=== PATIENT | male | born 1940 | race Hispanic/Latino ===

== ENCOUNTER 2017-11-12 09:53 | Observation (INO) | payer OTHER ==
[~2017-11-12] VITALS: Ht 165.1 cm; Wt 95.4 kg
[2017-11-12] MEDS ORDERED: METOPROLOL TARTRATE 1 MG/ML 5ML VIAL IV ONE ×2 (10:02→10:13)
[2017-11-12] MEDS ORDERED: POTASSIUM CHLORIDE 20 MEQ ERTAB PO ONE (10:03)
[2017-11-12 10:22] LABS: BASOPHILS % (AUTO) 0.6 % (0.0-5.0); EOSINOPHILS % (AUTO) 0.6 % (0.0-8.0); HEMATOCRIT 47.5 % (42-54); LYMPHOCYTES % (AUTO) 13.2 % (21.0-51.0); MEAN CORPUSCULAR HEMOGLOBIN 31.4 pg (27.0-33.0); MEAN CORPUSCULAR HGB CONC 33.3 g/dL (32.0-36.0); MEAN CORPUSCULAR VOLUME 94.4 fL (79-99); MONOCYTES % (AUTO) 7.4 % (3.0-13.0); NEUTROPHILS % (AUTO) 78.2 % (40.0-77.0); PLATELET COUNT (AUTO) 155 K/uL (130-400); RED BLOOD CELL COUNT(AUTO) 5.03 MIL/uL (4.50-6.20); RED CELL DISTRIBUTION WIDTH 14.7 % (11.0-15.5); WHITE BLOOD COUNT (AUTO) 12.1 K/uL (4.8-10.8)
[2017-11-12 10:29] LABS: CREATININE 1.1 mg/dL (0.5-1.5); PARTIAL THROMBOPLASTIN TIME 39.2 SEC (26.3-35.5)
[2017-11-12 10:34] LABS: ALBUMIN 3.1 g/dL (3.5-5.0); BILIRUBIN,TOTAL 1.3 mg/dL (0.2-1.0); DIGOXIN 0.48 ng/mL (0.50-2.00)
[2017-11-12 10:49] LABS: INR > 7.00 (0.85-1.15); PROTHROMBIN TIME > 63.0 SEC (9.6-11.6)
[2017-11-12] MEDS ORDERED: PHYTONADIONE 10 MG/1 ML AMP ONE (11:06)
[2017-11-12 11:37] LABS: CREATINE KINASE MB 0.9 ng/mL (0.5-3.6)
[2017-11-12] MEDS ORDERED: ONDANSETRON HCL 4 MG/2 ML VIAL IV PRN (12:15)
[2017-11-12] MEDS ORDERED: ACETAMINOPHEN-CODEINE 300/30MG TAB PO PRN (12:15)
[2017-11-12] MEDS ORDERED: DIPHENHYDRAMINE HCL 25 MG CAPSULE PO PRN (12:15)
[2017-11-12] MEDS ORDERED: LACTULOSE 20 GM/30 ML UDCUP PO PRN (12:15)
[2017-11-12] MEDS ORDERED: GUAIFENESIN-DM 200/20 MG 10 ML PO PRN (12:15)
[2017-11-12] MEDS ORDERED: NITROGLYCERIN 0.4 MG SL TAB SL PRN (12:15)
[2017-11-12] MEDS ORDERED: ACETAMINOPHEN 325 MG TAB PO PRN ×2 (12:15)
[2017-11-12] MEDS ORDERED: MAG HYDROX/AL HYDROX/SIMETH ES 30 ML SUSP UDCUP PO PRN (12:15)
[2017-11-12] MEDS ORDERED: HYDRALAZINE HCL 20 MG/ML VIAL IV PRN (12:15)
[2017-11-12] MEDS: DIGOXIN 250 MCG/ML 2ML AMP IV SCH (12:15)
[2017-11-12] MEDS ORDERED: MORPHINE SULFATE 2 MG/ML 1ML SYG IV PRN (12:15)
[2017-11-12] MEDS ORDERED: ZOLPIDEM TARTRATE 5 MG TAB PO PRN (12:15)
[2017-11-12] MEDS ORDERED: DIGOXIN 250 MCG/ML 2ML AMP ONE (13:51)
[2017-11-12 18:28] LABS: CREATINE KINASE MB 0.6 ng/mL (0.5-3.6); CREATINE KINASE, TOTAL 25 U/L (21-232); MYOGLOBIN 50 ng/mL (10-92); TROPONIN I < 0.04 ng/mL (0.00-0.06)
[2017-11-12 18:29] LABS: PROTHROMBIN TIME > 63.0 SEC (9.6-11.6)
[2017-11-12 18:30] LABS: INR > 7.00 (0.85-1.15)
[2017-11-12] MEDS ORDERED: METOPROLOL TARTRATE 25 MG TAB ONE (20:08)
[2017-11-12] MEDS ORDERED: FAMOTIDINE 20MG TAB 20 MG TAB ONE (20:09)
[2017-11-12] MEDS ORDERED: DILTIAZEM HCL 125 MG/25 ML VIAL IV ONE (20:44)
[2017-11-12] MEDS ORDERED: DILTIAZEM HCL 5 MG/ML 10 ML VIAL IV ONE (20:44)
[2017-11-12] MEDS ORDERED: METOPROLOL TARTRATE 25 MG TAB PO SCH (21:00)
[2017-11-12] MEDS: FAMOTIDINE 20MG TAB 20 MG TAB PO SCH (21:00)
[2017-11-12 22:35] VITALS: BP 121/72
[2017-11-13] MEDS ORDERED: TAMS0.4C32 PO (00:46)
[2017-11-13] MEDS ORDERED: METO100T14 PO (00:46)
[2017-11-13] MEDS ORDERED: DIGO0.12 PO (00:46)
[2017-11-13] MEDS ORDERED: [UNRECOGNIZED DRUG - OTHER] (00:46)
[2017-11-13] MEDS ORDERED: WARF2.5T85 PO (00:46)
[2017-11-13] MEDS ORDERED: WARF-57 PO (00:46)
[2017-11-13] MEDS ORDERED: ASPI-1197 PO (00:46)
[2017-11-13] MEDS ORDERED: SIMV10TA6 PO (00:46)
[2017-11-13] MEDS ORDERED: WARFARIN PO (00:46)
[2017-11-13] MEDS ORDERED: MULT-1289 PO (00:46)
[2017-11-13] MEDS ORDERED: BENZ-51 PO (00:46)
[2017-11-13 02:30] LABS: CREATININE 1.2 mg/dL (0.5-1.5); POTASSIUM 4.2 mmol/L (3.5-5.1)
[2017-11-13 02:31] LABS: PARTIAL THROMBOPLASTIN TIME 39.6 SEC (26.3-35.5)
[2017-11-13 02:38] LABS: INR 5.15 (0.85-1.15); PROTHROMBIN TIME 52.4 SEC (9.6-11.6)
[2017-11-13 02:44] LABS: CREATINE KINASE MB 0.6 ng/mL (0.5-3.6); CREATINE KINASE, TOTAL 27 U/L (21-232); MYOGLOBIN 43 ng/mL (10-92); TROPONIN I < 0.04 ng/mL (0.00-0.06)
[2017-11-13 03:15] VITALS: BP 117/69
[2017-11-13 07:47] VITALS: BP 126/80
[2017-11-13] MEDS ORDERED: ASPIRIN 81MG TAB.CHEW PO SCH (09:00)
[2017-11-13] MEDS ORDERED: BENZONATATE 100 MG CAPSULE PO PRN (09:00)
[2017-11-13] MEDS: MULTIVITAMIN WITH MINERALS TABLET PO SCH (09:46)
[2017-11-13] MEDS: TAMSULOSIN HCL 0.4 MG CAP.ER.24H PO SCH (09:46)
[2017-11-13] MEDS: DIGOXIN 125 MCG TABLET PO SCH (09:47)
[2017-11-13] MEDS: METOPROLOL TARTRATE 50 MG TAB PO SCH ×2 (09:47→20:12)
[2017-11-13] MEDS: FAMOTIDINE 20MG TAB 20 MG TAB PO SCH ×2 (09:48→20:12)
[2017-11-13] MEDS: DIGOXIN 250 MCG/ML 2ML AMP IV SCH (09:48)
[2017-11-13] MEDS ORDERED: PHYTONADIONE 10 MG/1 ML AMP SQ SCH (10:15)
[2017-11-13 11:19] VITALS: BP 114/56
[2017-11-13 16:25] VITALS: BP 130/60
[2017-11-13 19:42] VITALS: BP 120/78
[2017-11-13] MEDS ORDERED: ATORVASTATIN CALCIUM 10 MG TABLET PO SCH (21:00)
[2017-11-13 23:45] VITALS: BP 106/65
[2017-11-14 03:36] VITALS: BP 126/72
[2017-11-14 04:39] LABS: INR 1.69 (0.85-1.15); PARTIAL THROMBOPLASTIN TIME 30.5 SEC (26.3-35.5); POTASSIUM 4.2 mmol/L (3.5-5.1); PROTHROMBIN TIME 17.6 SEC (9.6-11.6)
[2017-11-14] MEDS ORDERED: WARFARIN SODIUM 5 MG TAB PO SCH (07:00)
[2017-11-14 07:29] VITALS: BP 121/72
[2017-11-14] MEDS: MULTIVITAMIN WITH MINERALS TABLET PO SCH (09:02)
[2017-11-14] MEDS: TAMSULOSIN HCL 0.4 MG CAP.ER.24H PO SCH (09:02)
[2017-11-14] MEDS: FAMOTIDINE 20MG TAB 20 MG TAB PO SCH (09:02)
[2017-11-14] MEDS: DIGOXIN 125 MCG TABLET PO SCH (09:02)
[2017-11-14] MEDS: METOPROLOL TARTRATE 50 MG TAB PO SCH (09:02)
[2017-11-14 11:25] VITALS: BP 124/77
[2017-11-15] MEDS ORDERED: WARFARIN SODIUM 2.5 MG TAB PO SCH (20:00)
[2018-03-08] MEDS ORDERED: ASPI-1181 PO (11:56)
[2018-03-08] MEDS ORDERED: LOSA25TA21 PO (11:59)
[2018-03-08] MEDS ORDERED: WARF-57 PO (11:59)
[2018-03-08] MEDS ORDERED: METO-391 PO (11:59)
[2018-03-08] MEDS ORDERED: FURO20TA4 PO (11:59)
[2018-03-08] MEDS ORDERED: DIGO125T87 PO (11:59)
[2018-03-08] MEDS ORDERED: PANT20TA12 PO (11:59)
[2018-04-19] MEDS ORDERED: WARF5TAB76 PO (10:47)
== END 2017-11-14 12:20 | disposition home or self-care (01) ==
LOC: EDH 09:53 → EDHIP 11:15 → 2AH 22:08
PROVIDERS: ADMIT Internal Medicine; ATTEND Internal Medicine
DX: I48.2 Chronic atrial fibrillation (principal); I25.10 Atherosclerotic heart disease of native coronary artery without angina pectoris; R79.1 Abnormal coagulation profile; I10 Essential (primary) hypertension; E78.5 Hyperlipidemia, unspecified; G47.33 Obstructive sleep apnea (adult) (pediatric); N40.0 Benign prostatic hyperplasia without lower urinary tract symptoms; Z79.01 Long term (current) use of anticoagulants; Z87.891 Personal history of nicotine dependence; Z95.1 Presence of aortocoronary bypass graft
CPT/HCPCS: 36415 ×3; 71010; 80048 ×2; 80053; 80162; 82550 ×3; 82553 ×3; 83874 ×2; 84484 ×3; 85025; 85610 ×4; 85730 ×3; 93005; 96372; 99291; G0378 ×49; J1160; J3430 ×2; J3490 ×4

== ENCOUNTER → 2017-12-27 | Outpatient (CLI) | payer OTHER ==
[~2017-12-27] MED LIST: ASPI-1181 PO; ASPI-1197 PO; BENZ-51 PO; DIGO0.12 PO; DIGO125T87 PO; FURO20TA4 PO; LOSA25TA21 PO; METO-391 PO; METO100T14 PO; MULT-1289 PO; PANT20TA12 PO; RANO500T3 PO; SIMV10TA6 PO; TAMS0.4C32 PO; WARF-57 PO; WARF2.5T85 PO; WARF5TAB76 PO; WARFARIN PO; [UNRECOGNIZED DRUG - OTHER]
== END ==
LOC: SHCH 09:06
PROVIDERS: ATTEND Internal Medicine Cardiovascular Disease
DX: I50.32 Chronic diastolic (congestive) heart failure (principal)
CPT/HCPCS: 93306

== ENCOUNTER → 2018-01-21 | Outpatient (CLI) | payer OTHER ==
[~2018-01-21] VITALS: Ht 167.6 cm; Wt 90.7 kg
[~2018-01-21] MED LIST changes: +REGADENOSON 0.4 MG/5 ML PF SYG IVP SCH
== END | disposition home or self-care (01) ==
LOC: SHCH 08:44
PROVIDERS: ATTEND Internal Medicine Cardiovascular Disease
DX: I48.2 Chronic atrial fibrillation (principal); R06.09 Other forms of dyspnea
CPT/HCPCS: 78452; 93017; 96374; A9500 ×2; J2785

== ENCOUNTER 2018-03-10 05:33 | Day surgery (SDC) | payer OTHER ==
[2018-03-08 11:36] VITALS: BP 137/76
[2018-03-08 11:54] LABS: BASOPHILS % (AUTO) 0.8 % (0.0-5.0); EOSINOPHILS % (AUTO) 2.3 % (0.0-8.0); HEMATOCRIT 43.9 % (42-54); MEAN CORPUSCULAR HEMOGLOBIN 31.7 pg (27.0-33.0); MEAN CORPUSCULAR HGB CONC 33.9 g/dL (32.0-36.0); MEAN CORPUSCULAR VOLUME 93.5 fL (79-99); MONOCYTES % (AUTO) 9.7 % (3.0-13.0); NEUTROPHILS % (AUTO) 69.2 % (40.0-77.0); NUCLEATED RED BLOOD CELLS 0.1 % (0.0-0.19); PLATELET COUNT (AUTO) 173 K/uL (130-400); RED CELL DISTRIBUTION WIDTH 14.1 % (11.0-15.5); WHITE BLOOD COUNT (AUTO) 7.2 K/uL (4.8-10.8)
[2018-03-08 12:00] LABS: APPEARANCE,URINE Clear (CLEAR); BILIRUBIN,URINE Negative (NEGATIVE); COLOR,URINE Yellow (YELLOW); GLUCOSE, URINE (UA) Negative (NEGATIVE); KETONES,URINE Negative (NEGATIVE); LEUKOCYTE ESTERASE ,URINE Negative (NEGATIVE); NITRATE,URINE Negative (NEGATIVE); OCCULT BLOOD,URINE Negative (NEGATIVE); PH,URINE 5.5 (5.0-8.0); PROTEIN,URINE Negative (NEGATIVE)
[2018-03-08 12:02] LABS: CREATININE 1.2 mg/dL (0.5-1.5); POTASSIUM 4.2 mmol/L (3.5-5.1)
[2018-03-08 12:04] LABS: INR 1.6 (0.85-1.15); PARTIAL THROMBOPLASTIN TIME 33.9 SEC (26.3-35.5); PROTHROMBIN TIME 16.6 SEC (9.6-11.6)
[2018-03-10] VITALS (13 sets, daily range): BP systolic 103–148; BP diastolic 66–92
[~2018-03-10] VITALS: Ht 167.6 cm; Wt 95.8 kg
[~2018-03-10 05:33] MED LIST changes: -ASPI-1197 PO; -BENZ-51 PO; -DIGO0.12 PO; -METO100T14 PO; -RANO500T3 PO; -REGADENOSON 0.4 MG/5 ML PF SYG IVP SCH; -WARF2.5T85 PO; -WARF5TAB76 PO; -WARFARIN PO; -[UNRECOGNIZED DRUG - OTHER]
[2018-03-10] MEDS ORDERED: SODIUM CHLORIDE 0.9% 1000ML 1,000 ML IV ONE (06:27)
[2018-03-10] MEDS ORDERED: NITROGLYCERIN 5 MG/ML 10 ML VIAL IV ONE (07:11)
[2018-03-10] MEDS ORDERED: HEPARIN SODIUM 1000UNIT/ML 10ML VIAL ONE (07:11)
[2018-03-10] MEDS ORDERED: ISOVUE-370 50ML VIAL IV ONE (07:11)
[2018-03-10] MEDS ORDERED: BIVALIRUDIN 250 MG/VIAL IV ONE (07:11)
[2018-03-10] MEDS ORDERED: IOPAMIDOL-370 100 ML VIAL IV ONE (07:12)
[2018-03-10] MEDS ORDERED: LIDOCAINE HCL 2% 20ML ONE (07:12)
[2018-03-10] MEDS ORDERED: RANO500T3 PO (08:46)
[2018-03-10] MEDS ORDERED: SODIUM CHLORIDE 0.9% 1000ML 1,000 ML IV SCH (09:00)
[2018-04-19] MEDS ORDERED: WARF5TAB76 PO (10:47)
== END 2018-03-10 13:15 | disposition home or self-care (01) ==
LOC: DAH 05:33
PROVIDERS: ATTEND Internal Medicine Cardiovascular Disease
DX: I25.118 Atherosclerotic heart disease of native coronary artery with other forms of angina pectoris (principal); I11.0 Hypertensive heart disease with heart failure; I50.42 Chronic combined systolic (congestive) and diastolic (congestive) heart failure; I48.2 Chronic atrial fibrillation; Z95.1 Presence of aortocoronary bypass graft; I08.0 Rheumatic disorders of both mitral and aortic valves; Z79.899 Other long term (current) drug therapy; Z68.31 Body mass index [BMI] 31.0-31.9, adult; E78.00 Pure hypercholesterolemia, unspecified; G47.33 Obstructive sleep apnea (adult) (pediatric); Z79.01 Long term (current) use of anticoagulants
CPT/HCPCS: 36415; 71045; 80048; 81003; 85025; 85610; 85730; 93005; 93459; A4606; C1760; C1769 ×2; C1894; J1644; J3490 ×2; J7030; Q9967 ×2; J0583

== ENCOUNTER 2018-04-20 06:15 | Day surgery (SDC) | payer OTHER ==
[~2018-04-20] VITALS: Ht 167.6 cm; Wt 95.6 kg
[~2018-04-20 06:15] MED LIST changes: +RANO500T3 PO; +SODIUM CHLORIDE 0.9% 1000ML 1,000 ML IV ONE; -WARF-57 PO; +WARF5TAB76 PO
[2018-04-20 06:53] VITALS: BP 123/72
[2018-04-20] MEDS ORDERED: PROPOFOL 10 MG/ML 20ML VIAL IV ONE (07:34)
[2018-04-20 08:19] VITALS: BP 62/27
[2018-04-20] MEDS ORDERED: EPHEDRINE SULFATE 50 MG/ML AMPULE ONE (08:25)
[2018-04-20 08:29] VITALS: BP 101/55
== END 2018-04-20 08:50 | disposition home or self-care (01) ==
LOC: DAH 06:15 → ENDO 06:15
PROVIDERS: ATTEND Internal Medicine Gastroenterology
DX: D12.2 Benign neoplasm of ascending colon (principal); K63.5 Polyp of colon; K57.30 Diverticulosis of large intestine without perforation or abscess without bleeding; I25.10 Atherosclerotic heart disease of native coronary artery without angina pectoris; I48.91 Unspecified atrial fibrillation; Z68.32 Body mass index [BMI] 32.0-32.9, adult; I50.20 Unspecified systolic (congestive) heart failure; Z86.010 Personal history of colon polyps; K21.9 Gastro-esophageal reflux disease without esophagitis; E78.5 Hyperlipidemia, unspecified; N40.0 Benign prostatic hyperplasia without lower urinary tract symptoms; Z95.1 Presence of aortocoronary bypass graft; Z98.890 Other specified postprocedural states; Z98.49 Cataract extraction status, unspecified eye; I11.0 Hypertensive heart disease with heart failure; Z79.899 Other long term (current) drug therapy; Z79.84 Long term (current) use of oral hypoglycemic drugs; Z79.01 Long term (current) use of anticoagulants
CPT/HCPCS: 45380; 88305; 93005; A4606; J2704; J3490; J7030

== ENCOUNTER 2020-02-06 10:17 | Emergency (ER) | payer OTHER ==
[~2020-02-06 10:17] MED LIST changes: -ASPI-1181 PO; +DIGO125T71 PO; -DIGO125T87 PO; -LOSA25TA21 PO; +LOSA25TA41 PO; -SIMV10TA6 PO; +SIMV10TA97 PO; -SODIUM CHLORIDE 0.9% 1000ML 1,000 ML IV ONE
[2020-02-06 10:48] LABS: APPEARANCE,URINE CLOUDY (CLEAR); BILIRUBIN,URINE SMALL (NEGATIVE); COLOR,URINE YELLOW (YELLOW); GLUCOSE, URINE (UA) NEGATIVE (NEGATIVE); KETONES,URINE NEGATIVE (NEGATIVE); LEUKOCYTE ESTERASE ,URINE NEGATIVE (NEGATIVE); NITRATE,URINE NEGATIVE (NEGATIVE); OCCULT BLOOD,URINE LARGE (NEGATIVE); PROTEIN,URINE 30 mg/dL (NEGATIVE)
[2020-02-06 10:55] LABS: BASOPHILS % (AUTO) 0.7 % (0.0-5.0); HEMATOCRIT 45.1 % (42-54); LYMPHOCYTES % (AUTO) 18.4 % (21.0-51.0); MEAN CORPUSCULAR HEMOGLOBIN 29.7 pg (27.0-33.0); MEAN CORPUSCULAR HGB CONC 32.2 g/dL (32.0-36.0); MEAN CORPUSCULAR VOLUME 92.4 fL (79-99); MONOCYTES % (AUTO) 8.2 % (3.0-13.0); NEUTROPHILS % (AUTO) 70.3 % (40.0-77.0); PLATELET COUNT (AUTO) 155 K/uL (130-400); RED BLOOD CELL COUNT(AUTO) 4.88 MIL/uL (4.50-6.20); RED CELL DISTRIBUTION WIDTH 14.2 % (11.0-15.5); WHITE BLOOD COUNT (AUTO) 6.8 K/uL (4.8-10.8)
[2020-02-06 11:14] LABS: BACTERIA,URINE Few /HPF (None Seen); RBC,URINE TNTC /HPF (0-1); SQUAMOUS EPITHELIAL CELL,UR Few /HPF (0-2)
[2020-02-06 11:16] LABS: CREATININE 1.3 mg/dL (0.5-1.5); POTASSIUM 4.3 mmol/L (3.5-5.1)
[2020-02-06 11:20] LABS: ALBUMIN 3.8 g/dL (3.5-5.0); BILIRUBIN,TOTAL 1.1 mg/dL (0.2-1.0); TOTAL PROTEIN, SERUM 7.9 g/dL (6.0-8.3)
[2020-02-06 11:33] LABS: INR 1.74 (0.85-1.15); PARTIAL THROMBOPLASTIN TIME 33.4 SEC (26.3-35.5); PROTHROMBIN TIME 18.4 SEC (9.6-11.6)
== END 2020-02-06 13:03 | disposition home or self-care (01) ==
LOC: EDH 10:17
DX: R31.0 Gross hematuria (principal); I10 Essential (primary) hypertension; E78.5 Hyperlipidemia, unspecified; I48.91 Unspecified atrial fibrillation; I25.2 Old myocardial infarction
CPT/HCPCS: 36415; 74176; 80053; 81001; 85025; 85610; 85730; 87088

== ENCOUNTER → 2020-09-12 | Outpatient (CLI) | payer OTHER ==
[~2020-09-12] MED LIST changes: -PANT20TA12 PO; +PANT20TA18 PO; +WARF5TAB PO; -WARF5TAB76 PO
== END | disposition home or self-care (01) ==
LOC: SHCH 08:13
PROVIDERS: ATTEND Internal Medicine Cardiovascular Disease
DX: I35.0 Nonrheumatic aortic (valve) stenosis (principal); I50.32 Chronic diastolic (congestive) heart failure
CPT/HCPCS: 93306

== ENCOUNTER 2021-10-30 14:56 | Inpatient (IN) | payer OTHER ==
[~2021-10-30] VITALS: Ht 167.6 cm; Wt 89.9 kg
[2021-10-30] MEDS ORDERED: POTASSIUM CHLORIDE 20MEQ/100ML 100 ML IV PRN ×2 (15:30)
[2021-10-30] MEDS ORDERED: FUROSEMIDE 40MG VIAL IV SCH (15:30)
[2021-10-30] MEDS ORDERED: POTASSIUM CHLORIDE 10% ELIXIR 20 MEQ/15 ML UDCUP PO PRN ×2 (15:30)
[2021-10-30] MEDS ORDERED: LIDOCAINE HCL-MPF 1% 2ML VIAL IJ PRN (15:30)
[2021-10-30] MEDS ORDERED: DEXTROSE 50%-WATER 50 ML DISP.SYRIN IV PRN (15:30)
[2021-10-30] MEDS ORDERED: KCL 20 MEQ ERTAB PO PRN (15:30)
[2021-10-30] MEDS ORDERED: LIDOCAINE HCL-MPF 1% 2ML VIAL IV PRN (15:30)
[2021-10-30] MEDS ORDERED: GLUCAGON 1MG KIT 1 MG ML IM PRN (15:30)
[2021-10-30] MEDS ORDERED: WARFARIN SODIUM 2 MG TAB PO SCH (16:00)
[2021-10-30] MEDS: DIGOXIN 125 MCG TABLET PO SCH ×2 (16:09→16:20)
[2021-10-30] MEDS: FUROSEMIDE 40MG VIAL IVP SCH (16:10)
[2021-10-30 16:12] LABS: BASOPHILS % (AUTO) 0.7 % (0.0-5.0); EOSINOPHILS % (AUTO) 1.7 % (0.0-8.0); HEMATOCRIT 42.5 % (42-54); LYMPHOCYTES % (AUTO) 14.1 % (21.0-51.0); MEAN CORPUSCULAR HEMOGLOBIN 29.3 pg (27.0-33.0); MEAN CORPUSCULAR HGB CONC 31.5 g/dL (32.0-36.0); MONOCYTES % (AUTO) 9.1 % (3.0-13.0); NEUTROPHILS % (AUTO) 74.1 % (40.0-77.0); PLATELET COUNT (AUTO) 154 K/uL (130-400); RED BLOOD CELL COUNT(AUTO) 4.57 MIL/uL (4.50-6.20); RED CELL DISTRIBUTION WIDTH 15.6 % (11.0-15.5); WHITE BLOOD COUNT (AUTO) 7.2 K/uL (4.8-10.8)
[2021-10-30 16:27] LABS: CREATININE 1.4 mg/dL (0.5-1.5); MAGNESIUM 2.1 mg/dL (1.80-2.40); POTASSIUM 4.9 mmol/L (3.5-5.1)
[2021-10-30] MEDS: INSULIN R PO SSI SQ SCH ×2 (16:30→20:13)
[2021-10-30] MEDS ORDERED: INSULIN HUMULIN R 100 UNIT/ML 3ML SQ SCH (16:30)
[2021-10-30 16:32] LABS: INR 2.67 (0.85-1.15); PROTHROMBIN TIME 26.6 SEC (9.6-11.6)
[2021-10-30 16:34] LABS: B-TYPE NATRIURETIC PEPTIDE 255 pg/mL (0-100)
[2021-10-30] MEDS ORDERED: ROSU20TA31 PO (17:00)
[2021-10-30] MEDS ORDERED: TAMS-1 PO ×2 (17:00→19:53)
[2021-10-30] MEDS ORDERED: ASPI-1197 PO (17:00)
[2021-10-30] MEDS ORDERED: WARF4TAB72 PO (17:00)
[2021-10-30] MEDS ORDERED: FINA5TAB41 PO (17:00)
[2021-10-30] MEDS ORDERED: DONE10TA43 PO (17:00)
[2021-10-30] MEDS ORDERED: MEMA10TA55 PO (17:00)
[2021-10-30] MEDS ORDERED: BISACODYL 10 MG SUPP.RECT RC PRN (20:00)
[2021-10-30] MEDS ORDERED: ONDANSETRON 4MG INJ IV PRN (20:00)
[2021-10-30] MEDS ORDERED: BISACODYL 5 MG TABLET.DR PO PRN (20:00)
[2021-10-30] MEDS ORDERED: ACETAMINOPHEN 325 MG TAB PO PRN ×2 (20:00)
[2021-10-30] MEDS: CEFTRIAXONE 1G VIAL IV SCH (20:10)
[2021-10-30] MEDS: FAMOTIDINE 20MG TAB PO SCH (20:20)
[2021-10-30] MEDS: MEMANTINE HCL 5 MG TABLET PO SCH (20:20)
[2021-10-30 20:40] LABS: APPEARANCE,URINE CLOUDY (CLEAR); BILIRUBIN,URINE NEGATIVE (NEGATIVE); COLOR,URINE RED (YELLOW); GLUCOSE, URINE (UA) NEGATIVE (NEGATIVE); KETONES,URINE NEGATIVE (NEGATIVE); LEUKOCYTE ESTERASE ,URINE NEGATIVE (NEGATIVE); NITRATE,URINE POSITIVE (NEGATIVE); OCCULT BLOOD,URINE LARGE (NEGATIVE); PROTEIN,URINE 30 mg/dL (NEGATIVE)
[2021-10-30 20:48] LABS: RBC,URINE TNTC /HPF (0-1)
[2021-10-30 20:49] LABS: BACTERIA,URINE Rare /HPF (None Seen); SQUAMOUS EPITHELIAL CELL,UR None Seen /HPF (0-2); WBC,URINE 0-1 /HPF (0-1)
[2021-10-30] MEDS ORDERED: NON-FORMULARY MEDICATION 1 EACH (Memantine HCl 10 MG) PO SCH (21:00)
[2021-10-30] MEDS ORDERED: TAMSULOSIN HCL 0.4 MG CAP.ER.24H PO SCH (21:30)
[2021-10-31] VITALS (7 sets, daily range): BP systolic 98–150; BP diastolic 61–79
[2021-10-31] MEDS: FUROSEMIDE 40MG VIAL IVP SCH ×2 (05:48→15:56)
[2021-10-31 05:55] LABS: BASOPHILS % (AUTO) 0.6 % (0.0-5.0); EOSINOPHILS % (AUTO) 1.3 % (0.0-8.0); HEMATOCRIT 41.1 % (42-54); LYMPHOCYTES % (AUTO) 12.7 % (21.0-51.0); MEAN CORPUSCULAR HEMOGLOBIN 29.3 pg (27.0-33.0); MEAN CORPUSCULAR HGB CONC 31.4 g/dL (32.0-36.0); MEAN CORPUSCULAR VOLUME 93.2 fL (79-99); MONOCYTES % (AUTO) 10.4 % (3.0-13.0); NEUTROPHILS % (AUTO) 74.6 % (40.0-77.0); PLATELET COUNT (AUTO) 161 K/uL (130-400); RED BLOOD CELL COUNT(AUTO) 4.41 MIL/uL (4.50-6.20); RED CELL DISTRIBUTION WIDTH 15.3 % (11.0-15.5); WHITE BLOOD COUNT (AUTO) 7.8 K/uL (4.8-10.8)
[2021-10-31 06:05] LABS: CREATININE 1.4 mg/dL (0.5-1.5); INR 2.1 (0.85-1.15); MAGNESIUM 1.9 mg/dL (1.80-2.40); PHOSPHORUS 4.2 mg/dL (2.5-4.9); POTASSIUM 3.7 mmol/L (3.5-5.1); PROTHROMBIN TIME 21.4 SEC (9.6-11.6)
[2021-10-31 06:07] LABS: PARTIAL THROMBOPLASTIN TIME 36.2 SEC (26.3-35.5)
[2021-10-31 06:11] LABS: B-TYPE NATRIURETIC PEPTIDE 200 pg/mL (0-100)
[2021-10-31] MEDS: INSULIN R PO SSI SQ SCH ×4 (06:44→20:41)
[2021-10-31] MEDS: TAMSULOSIN HCL 0.4 MG CAP.ER.24H PO SCH (08:25)
[2021-10-31] MEDS: METOPROLOL SUCCINATE 50 MG TAB.SR.24H PO SCH (08:26)
[2021-10-31] MEDS: FINASTERIDE 5 MG TABLET PO SCH (08:26)
[2021-10-31] MEDS: DONEPEZIL HCL 5 MG TAB PO SCH (08:26)
[2021-10-31] MEDS: MULTIVITAMIN TABLET PO SCH (08:26)
[2021-10-31] MEDS: MEMANTINE HCL 5 MG TABLET PO SCH ×2 (08:27→20:17)
[2021-10-31] MEDS: ATORVASTATIN 40 MG TABLET PO SCH (08:27)
[2021-10-31] MEDS ORDERED: DIGOXIN 125 MCG TABLET PO SCH ×2 (09:00)
[2021-10-31] MEDS ORDERED: [UNRECOGNIZED DRUG - OTHER] PO SCH (09:00)
[2021-10-31] MEDS ORDERED: METOPROLOL SUCCINATE 50 MG TAB.SR.24H PO SCH ×2 (09:00)
[2021-10-31] MEDS ORDERED: NON-FORMULARY MEDICATION 1 EACH (Rosuvastatin Calcium 20 MG) PO SCH (09:00)
[2021-10-31] MEDS ORDERED: NON-FORMULARY MEDICATION 1 EACH (Donepezil HCl 10 MG) PO SCH (09:00)
[2021-10-31] MEDS ORDERED: WARFARIN SODIUM 2 MG TAB PO SCH (09:00)
[2021-10-31] MEDS: WARFARIN SODIUM 2 MG TAB PO SCH (15:56)
[2021-10-31] MEDS: FAMOTIDINE 20MG TAB PO SCH (20:17)
[2021-10-31] MEDS: CEFTRIAXONE 1G VIAL IV SCH (20:17)
[2021-11-01 03:53] VITALS: BP 123/70
[2021-11-01 04:47] LABS: CREATININE 1.6 mg/dL (0.5-1.5); POTASSIUM 3.6 mmol/L (3.5-5.1)
[2021-11-01] MEDS: FUROSEMIDE 40MG VIAL IVP SCH (05:24)
[2021-11-01] MEDS: KCL 20 MEQ ERTAB PO PRN ×2 (05:25→08:42)
[2021-11-01 05:38] LABS: B-TYPE NATRIURETIC PEPTIDE 101 pg/mL (0-100)
[2021-11-01] MEDS: INSULIN R PO SSI SQ SCH ×4 (06:26→21:00)
[2021-11-01 06:30] LABS: BASOPHILS % (AUTO) 0.8 % (0.0-5.0); EOSINOPHILS % (AUTO) 1.8 % (0.0-8.0); HEMATOCRIT 41.8 % (42-54); LYMPHOCYTES % (AUTO) 14.2 % (21.0-51.0); MEAN CORPUSCULAR HEMOGLOBIN 29.5 pg (27.0-33.0); MEAN CORPUSCULAR HGB CONC 32.3 g/dL (32.0-36.0); MEAN CORPUSCULAR VOLUME 91.3 fL (79-99); MONOCYTES % (AUTO) 9.8 % (3.0-13.0); NEUTROPHILS % (AUTO) 73.2 % (40.0-77.0); PLATELET COUNT (AUTO) 192 K/uL (130-400); RED BLOOD CELL COUNT(AUTO) 4.58 MIL/uL (4.50-6.20); RED CELL DISTRIBUTION WIDTH 15.4 % (11.0-15.5); WHITE BLOOD COUNT (AUTO) 8.3 K/uL (4.8-10.8)
[2021-11-01] MEDS: MEMANTINE HCL 5 MG TABLET PO SCH ×2 (08:41→21:52)
[2021-11-01] MEDS: TAMSULOSIN HCL 0.4 MG CAP.ER.24H PO SCH (08:41)
[2021-11-01] MEDS: MULTIVITAMIN TABLET PO SCH (08:42)
[2021-11-01] MEDS: FINASTERIDE 5 MG TABLET PO SCH (08:42)
[2021-11-01] MEDS: ATORVASTATIN 40 MG TABLET PO SCH (08:42)
[2021-11-01] MEDS: DONEPEZIL HCL 5 MG TAB PO SCH (08:42)
[2021-11-01] MEDS: METOPROLOL SUCCINATE 50 MG TAB.SR.24H PO SCH (08:42)
[2021-11-01 09:02] VITALS: BP 112/67
[2021-11-01 09:59] LABS: INR 1.81 (0.85-1.15); PROTHROMBIN TIME 18.7 SEC (9.6-11.6)
[2021-11-01 13:23] VITALS: BP 122/67
[2021-11-01 16:00] VITALS: BP 121/81
[2021-11-01 16:19] LABS: CREATININE 1.7 mg/dL (0.5-1.5); POTASSIUM 4.9 mmol/L (3.5-5.1)
[2021-11-01] MEDS: DIGOXIN 125 MCG TABLET PO SCH (17:46)
[2021-11-01] MEDS: WARFARIN SODIUM 2 MG TAB PO SCH (17:46)
[2021-11-01 19:37] VITALS: BP 125/95
[2021-11-01] MEDS: FAMOTIDINE 20MG TAB PO SCH (21:51)
[2021-11-01] MEDS: CEFTRIAXONE 1G VIAL IV SCH (21:52)
[2021-11-01 23:52] VITALS: BP 117/56
[2021-11-02 03:43] LABS: BASOPHILS % (AUTO) 0.6 % (0.0-5.0); HEMATOCRIT 43.4 % (42-54); LYMPHOCYTES % (AUTO) 15.8 % (21.0-51.0); MEAN CORPUSCULAR HEMOGLOBIN 29.1 pg (27.0-33.0); MONOCYTES % (AUTO) 9.4 % (3.0-13.0); NEUTROPHILS % (AUTO) 71.8 % (40.0-77.0); PLATELET COUNT (AUTO) 186 K/uL (130-400); RED BLOOD CELL COUNT(AUTO) 4.77 MIL/uL (4.50-6.20); RED CELL DISTRIBUTION WIDTH 15.3 % (11.0-15.5); WHITE BLOOD COUNT (AUTO) 8.4 K/uL (4.8-10.8)
[2021-11-02 04:03] VITALS: BP 127/70
[2021-11-02 04:05] LABS: CREATININE 1.5 mg/dL (0.5-1.5); POTASSIUM 3.9 mmol/L (3.5-5.1)
[2021-11-02] MEDS: INSULIN R PO SSI SQ SCH ×4 (06:27→21:43)
[2021-11-02 06:52] LABS: INR 1.73 (0.85-1.15); PROTHROMBIN TIME 17.9 SEC (9.6-11.6)
[2021-11-02 07:52] VITALS: BP 145/53
[2021-11-02] MEDS: FINASTERIDE 5 MG TABLET PO SCH (08:42)
[2021-11-02] MEDS: TAMSULOSIN HCL 0.4 MG CAP.ER.24H PO SCH (08:42)
[2021-11-02] MEDS: MULTIVITAMIN TABLET PO SCH (08:43)
[2021-11-02] MEDS: MEMANTINE HCL 5 MG TABLET PO SCH ×2 (08:43→21:35)
[2021-11-02] MEDS: METOPROLOL SUCCINATE 50 MG TAB.SR.24H PO SCH (08:43)
[2021-11-02] MEDS: ATORVASTATIN 40 MG TABLET PO SCH (08:43)
[2021-11-02] MEDS: DONEPEZIL HCL 5 MG TAB PO SCH (08:43)
[2021-11-02] MEDS ORDERED: FUROSEMIDE 20 MG TABLET PO SCH (10:30)
[2021-11-02 11:45] VITALS: BP 114/75
[2021-11-02 15:35] VITALS: BP 124/71
[2021-11-02] MEDS: WARFARIN SODIUM 2 MG TAB PO SCH (17:39)
[2021-11-02] MEDS: DIGOXIN 125 MCG TABLET PO SCH (17:39)
[2021-11-02] MEDS: FUROSEMIDE 20 MG TABLET PO SCH (17:40)
[2021-11-02 19:52] VITALS: BP 117/69
[2021-11-02] MEDS: CEFTRIAXONE 1G VIAL IV SCH (21:35)
[2021-11-02] MEDS: FAMOTIDINE 20MG TAB PO SCH (21:35)
[2021-11-02 23:29] VITALS: BP 116/68
[2021-11-03 03:42] VITALS: BP 111/65
[2021-11-03] MEDS: INSULIN R PO SSI SQ SCH ×4 (06:20→20:11)
[2021-11-03 07:00] VITALS: BP 116/61
[2021-11-03 07:08] LABS: BASOPHILS % (AUTO) 0.6 % (0.0-5.0); EOSINOPHILS % (AUTO) 1.5 % (0.0-8.0); HEMATOCRIT 43.1 % (42-54); LYMPHOCYTES % (AUTO) 16.3 % (21.0-51.0); MEAN CORPUSCULAR HEMOGLOBIN 29.1 pg (27.0-33.0); MEAN CORPUSCULAR HGB CONC 31.3 g/dL (32.0-36.0); MEAN CORPUSCULAR VOLUME 92.9 fL (79-99); MONOCYTES % (AUTO) 9.7 % (3.0-13.0); NEUTROPHILS % (AUTO) 71.7 % (40.0-77.0); PLATELET COUNT (AUTO) 182 K/uL (130-400); RED BLOOD CELL COUNT(AUTO) 4.64 MIL/uL (4.50-6.20); RED CELL DISTRIBUTION WIDTH 15.3 % (11.0-15.5); WHITE BLOOD COUNT (AUTO) 8.5 K/uL (4.8-10.8)
[2021-11-03 07:23] LABS: CREATININE 1.6 mg/dL (0.5-1.5)
[2021-11-03 07:52] LABS: INR 1.82 (0.85-1.15); PROTHROMBIN TIME 18.8 SEC (9.6-11.6)
[2021-11-03] MEDS: DONEPEZIL HCL 5 MG TAB PO SCH (08:59)
[2021-11-03] MEDS ORDERED: LISINOPRIL 10 MG TABLET PO SCH (09:00)
[2021-11-03] MEDS: ATORVASTATIN 40 MG TABLET PO SCH (09:02)
[2021-11-03] MEDS: METOPROLOL SUCCINATE 50 MG TAB.SR.24H PO SCH (09:02)
[2021-11-03] MEDS: TAMSULOSIN HCL 0.4 MG CAP.ER.24H PO SCH (09:02)
[2021-11-03] MEDS: FUROSEMIDE 20 MG TABLET PO SCH ×2 (09:02→18:12)
[2021-11-03] MEDS: FINASTERIDE 5 MG TABLET PO SCH (09:03)
[2021-11-03] MEDS: MULTIVITAMIN TABLET PO SCH (09:03)
[2021-11-03] MEDS: MEMANTINE HCL 5 MG TABLET PO SCH ×2 (09:03→20:10)
[2021-11-03 11:00] VITALS: BP 116/66
[2021-11-03 16:00] VITALS: BP 100/74
[2021-11-03] MEDS ORDERED: WARFARIN SODIUM 2 MG TAB PO SCH (16:30)
[2021-11-03] MEDS: DIGOXIN 125 MCG TABLET PO SCH (17:09)
[2021-11-03 19:58] VITALS: BP 102/68
[2021-11-03] MEDS: FAMOTIDINE 20MG TAB PO SCH (20:10)
[2021-11-03 23:30] VITALS: BP 104/47
[2021-11-04 03:25] VITALS: BP 112/73
[2021-11-04 05:11] LABS: BASOPHILS % (AUTO) 0.7 % (0.0-5.0); EOSINOPHILS % (AUTO) 2.3 % (0.0-8.0); HEMATOCRIT 43.3 % (42-54); LYMPHOCYTES % (AUTO) 16.5 % (21.0-51.0); MEAN CORPUSCULAR HEMOGLOBIN 29.4 pg (27.0-33.0); MEAN CORPUSCULAR HGB CONC 31.4 g/dL (32.0-36.0); MEAN CORPUSCULAR VOLUME 93.5 fL (79-99); MONOCYTES % (AUTO) 8.5 % (3.0-13.0); NEUTROPHILS % (AUTO) 71.6 % (40.0-77.0); PLATELET COUNT (AUTO) 178 K/uL (130-400); RED BLOOD CELL COUNT(AUTO) 4.63 MIL/uL (4.50-6.20); RED CELL DISTRIBUTION WIDTH 15.2 % (11.0-15.5); WHITE BLOOD COUNT (AUTO) 8.4 K/uL (4.8-10.8)
[2021-11-04 05:14] LABS: CREATININE 1.4 mg/dL (0.5-1.5); POTASSIUM 3.8 mmol/L (3.5-5.1)
[2021-11-04] MEDS: INSULIN R PO SSI SQ SCH (05:46)
[2021-11-04 05:54] LABS: INR 1.96 (0.85-1.15); PROTHROMBIN TIME 19.6 SEC (9.6-11.6)
[2021-11-04 07:00] VITALS: BP 107/63
[2021-11-04] MEDS: TAMSULOSIN HCL 0.4 MG CAP.ER.24H PO SCH (09:48)
[2021-11-04] MEDS: METOPROLOL SUCCINATE 50 MG TAB.SR.24H PO SCH (09:48)
[2021-11-04] MEDS: FUROSEMIDE 20 MG TABLET PO SCH (09:49)
[2021-11-04] MEDS: MULTIVITAMIN TABLET PO SCH (09:50)
[2021-11-04] MEDS: MEMANTINE HCL 5 MG TABLET PO SCH (09:50)
[2021-11-04] MEDS: ATORVASTATIN 40 MG TABLET PO SCH (09:50)
[2021-11-04] MEDS: DONEPEZIL HCL 5 MG TAB PO SCH (09:50)
[2021-11-04] MEDS: FINASTERIDE 5 MG TABLET PO SCH (09:50)
[2021-11-04] MEDS ORDERED: LISI2.5T13 PO (10:54)
[2021-11-04] MEDS ORDERED: FURO20TA6 PO (10:54)
[2021-11-04 11:00] VITALS: BP 94/55
== END 2021-11-04 15:46 | disposition home or self-care (01) | DRG 951 ==
LOC: EDH 14:56 → EDHIP 15:39 → 2DH 10-31 00:23
PROVIDERS: ADMIT Internal Medicine; ATTEND Internal Medicine
DX: Z80.9 Family history of malignant neoplasm, unspecified (principal); I50.43 Acute on chronic combined systolic (congestive) and diastolic (congestive) heart failure; Q24.4 Congenital subaortic stenosis; I13.0 Hypertensive heart and chronic kidney disease with heart failure and stage 1 through stage 4 chronic kidney disease, or unspecified chronic kidney disease; D62 Acute posthemorrhagic anemia; R31.0 Gross hematuria; N40.0 Benign prostatic hyperplasia without lower urinary tract symptoms; Z68.35 Body mass index [BMI] 35.0-35.9, adult; I25.10 Atherosclerotic heart disease of native coronary artery without angina pectoris; E78.5 Hyperlipidemia, unspecified; E66.9 Obesity, unspecified; N18.30 Chronic kidney disease, stage 3 unspecified; I48.0 Paroxysmal atrial fibrillation; I08.3 Combined rheumatic disorders of mitral, aortic and tricuspid valves; Z98.41 Cataract extraction status, right eye; Z79.01 Long term (current) use of anticoagulants; Z79.899 Other long term (current) drug therapy; Z95.1 Presence of aortocoronary bypass graft; Z83.3 Family history of diabetes mellitus
CPT/HCPCS: 36415; 71045; 76770; 80048; 81001; 82948; 83735; 83880; 84100; 84443; 85025; 85610; 85730; 87088; 93306; 93356; G0378; J0696; J1815; J1940

== ENCOUNTER → 2022-02-04 | Outpatient (CLI) | payer OTHER ==
[~2022-02-04] MED LIST changes: +ASPI-1197 PO; +DONE10TA43 PO; +FINA5TAB41 PO; -FURO20TA4 PO; +FURO20TA6 PO; +LISI2.5T13 PO; -LOSA25TA41 PO; +MEMA10TA55 PO; -RANO500T3 PO; +ROSU20TA31 PO; -SIMV10TA97 PO; +TAMS-1 PO; -TAMS0.4C32 PO; +WARF4TAB72 PO; -WARF5TAB PO
== END | disposition home or self-care (01) ==
LOC: RAH 11:06
PROVIDERS: ATTEND Internal Medicine Cardiovascular Disease
DX: I50.42 Chronic combined systolic (congestive) and diastolic (congestive) heart failure (principal); I51.7 Cardiomegaly; Z98.890 Other specified postprocedural states
CPT/HCPCS: 71046

== ENCOUNTER → 2022-05-05 | Outpatient (CLI) | payer OTHER ==
[2022-05-05 12:33] LABS: CREATININE 1.6 mg/dL (0.5-1.5); URIC ACID 6.9 mg/dL (2.6-7.2)
== END | disposition home or self-care (01) ==
LOC: LAB 09:32
PROVIDERS: ATTEND Internal Medicine Cardiovascular Disease
DX: I48.21 Permanent atrial fibrillation (principal); I50.42 Chronic combined systolic (congestive) and diastolic (congestive) heart failure; Z79.899 Other long term (current) drug therapy
CPT/HCPCS: 36415; 80048; 82306; 83880; 84550

== ENCOUNTER 2022-11-13 07:27 | Observation (INO) | payer OTHER ==
[~2022-11-13] VITALS: Ht 167.6 cm; Wt 93.6 kg
[2022-11-13] MEDS ORDERED: DILTIAZEM 125 MG/25 ML INJ IV ONE (07:42)
[2022-11-13] MEDS: DILTIAZEM 50MG VIAL IV SCH (07:42)
[2022-11-13 07:48] LABS: BASOPHILS % (AUTO) 0.6 % (0.0-5.0); EOSINOPHILS % (AUTO) 2.4 % (0.0-8.0); HEMATOCRIT 44.9 % (42-54); LYMPHOCYTES % (AUTO) 14.9 % (21.0-51.0); MEAN CORPUSCULAR VOLUME 94.1 fL (79-99); MONOCYTES % (AUTO) 9.7 % (3.0-13.0); PLATELET COUNT (AUTO) 159 K/uL (130-400); RED BLOOD CELL COUNT(AUTO) 4.77 MIL/uL (4.50-6.20); RED CELL DISTRIBUTION WIDTH 13.3 % (11.0-15.5)
[2022-11-13] MEDS ORDERED: DILTIAZEM 125 MG/25 ML INJ 125 MG in 0.9%NACL 100ML 100 ML IV SCH (08:00)
[2022-11-13 08:06] LABS: CREATININE 1.3 mg/dL (0.5-1.5); POTASSIUM 4.4 mmol/L (3.5-5.1)
[2022-11-13 08:09] LABS: B-TYPE NATRIURETIC PEPTIDE 160 pg/mL (0-100)
[2022-11-13 08:10] LABS: ALBUMIN 3.7 g/dL (3.5-5.0); MAGNESIUM 1.9 mg/dL (1.80-2.40); TOTAL PROTEIN, SERUM 8.1 g/dL (6.0-8.3)
[2022-11-13] MEDS ORDERED: ASPIRIN 81MG CHEW TAB PO ONE (09:00)
[2022-11-13] MEDS ORDERED: LACTULOSE 20 GM/30 ML UDCUP PO PRN (09:30)
[2022-11-13] MEDS ORDERED: ONDANSETRON 4MG INJ IVP PRN (09:30)
[2022-11-13] MEDS ORDERED: ACETAMINOPHEN 650 MG SUPPOSITORY RC PRN (09:30)
[2022-11-13] MEDS ORDERED: ACETAMINOPHEN 325 MG TAB PO PRN (09:30)
[2022-11-13] MEDS ORDERED: CLONIDINE HCL 0.1 MG TABLET PO PRN (09:30)
[2022-11-13] MEDS: DILTIAZEM 60MG TAB PO SCH ×3 (09:35→20:46)
[2022-11-13] MEDS: ENOXAPARIN SODIUM 100 MG/1 ML SQ SCH ×2 (09:51→20:48)
[2022-11-13 10:17] LABS: APPEARANCE,URINE CLEAR (CLEAR); BILIRUBIN,URINE NEGATIVE (NEGATIVE); COLOR,URINE YELLOW (YELLOW); GLUCOSE, URINE (UA) NEGATIVE (NEGATIVE); KETONES,URINE NEGATIVE (NEGATIVE); LEUKOCYTE ESTERASE ,URINE NEGATIVE Leu/uL (NEGATIVE); NITRATE,URINE NEGATIVE (NEGATIVE); OCCULT BLOOD,URINE NEGATIVE (NEGATIVE); PROTEIN,URINE 30 mg/dL (NEGATIVE)
[2022-11-13 10:20] LABS: BACTERIA,URINE RARE /HPF (None Seen); MUCUS,URINE RARE LPF (None Seen); SQUAMOUS EPITHELIAL CELL,UR RARE /HPF (0-2)
[2022-11-13] MEDS: INSULIN HUMULIN R 100 UNIT/ML 3ML SQ SCH ×3 (11:30→20:30)
[2022-11-13 19:50] VITALS: BP 142/77
[2022-11-13] MEDS ORDERED: ENOXAPARIN SODIUM 1 MG/KG SQ SCH (21:00)
[2022-11-13 23:20] VITALS: BP 120/59
[2022-11-14 03:55] LABS: BASOPHILS % (AUTO) 0.6 % (0.0-5.0); EOSINOPHILS % (AUTO) 2.3 % (0.0-8.0); HEMATOCRIT 38.1 % (42-54); LYMPHOCYTES % (AUTO) 11.8 % (21.0-51.0); MEAN CORPUSCULAR HEMOGLOBIN 30.4 pg (27.0-33.0); MEAN CORPUSCULAR HGB CONC 32.8 g/dL (32.0-36.0); MEAN CORPUSCULAR VOLUME 92.7 fL (79-99); MONOCYTES % (AUTO) 9.7 % (3.0-13.0); NEUTROPHILS % (AUTO) 75.2 % (40.0-77.0); PLATELET COUNT (AUTO) 156 K/uL (130-400); RED BLOOD CELL COUNT(AUTO) 4.11 MIL/uL (4.50-6.20); RED CELL DISTRIBUTION WIDTH 13.6 % (11.0-15.5)
[2022-11-14 04:11] LABS: CREATININE 1.4 mg/dL (0.5-1.5); MAGNESIUM 1.8 mg/dL (1.80-2.40); PHOSPHORUS 3.3 mg/dL (2.5-4.9); POTASSIUM 4.3 mmol/L (3.5-5.1)
[2022-11-14] MEDS: DILTIAZEM 60MG TAB PO SCH ×4 (04:24→21:03)
[2022-11-14 04:25] LABS: B-TYPE NATRIURETIC PEPTIDE 78 pg/mL (0-100)
[2022-11-14 04:34] VITALS: BP 108/62
[2022-11-14] MEDS ORDERED: 0.9%NACL 100ML 100 ML ONE (04:35)
[2022-11-14] MEDS: INSULIN HUMULIN R 100 UNIT/ML 3ML SQ SCH ×4 (06:12→21:00)
[2022-11-14] MEDS: DILTIAZEM 50MG VIAL IV SCH (06:13)
[2022-11-14 08:00] VITALS: BP 122/65
[2022-11-14] MEDS: TAMSULOSIN HCL 0.4 MG CAP.ER.24H PO SCH (08:16)
[2022-11-14] MEDS: DIGOXIN 125 MCG TABLET PO SCH (08:16)
[2022-11-14] MEDS: METOPROLOL SUCCINATE 50 MG TAB.SR.24H PO SCH (08:17)
[2022-11-14] MEDS: FUROSEMIDE 20 MG TABLET PO SCH ×2 (08:17→21:04)
[2022-11-14] MEDS: ASPIRIN 81MG CHEW TAB PO SCH (08:17)
[2022-11-14] MEDS: MULTIVITAMIN TABLET PO SCH (08:18)
[2022-11-14] MEDS: LISINOPRIL 2.5 MG TABLET PO SCH (08:18)
[2022-11-14] MEDS: PANTOPRAZOLE 40 MG TAB DR PO SCH (08:18)
[2022-11-14] MEDS: MEMANTINE HCL 5 MG TABLET PO SCH ×2 (08:19→21:04)
[2022-11-14] MEDS: DONEPEZIL HCL 5 MG TAB PO SCH (08:19)
[2022-11-14] MEDS: ENOXAPARIN SODIUM 100 MG/1 ML SQ SCH ×2 (08:21→21:02)
[2022-11-14] MEDS: FINASTERIDE 5 MG TABLET PO SCH (08:28)
[2022-11-14] MEDS: ROSUVASTATIN 20MG PO SCH (08:29)
[2022-11-14] MEDS ORDERED: NON-FORMULARY MEDICATION 1 EACH (Donepezil HCl 10 MG) PO SCH (09:00)
[2022-11-14] MEDS ORDERED: [UNRECOGNIZED DRUG - OTHER] PO SCH (09:00)
[2022-11-14] MEDS ORDERED: NON-FORMULARY MEDICATION 1 EACH (Memantine HCl 10 MG) PO SCH (09:00)
[2022-11-14] MEDS ORDERED: NON-FORMULARY MEDICATION 1 EACH (Rosuvastatin Calcium 20 MG) PO SCH (09:00)
[2022-11-14] MEDS ORDERED: NON-FORMULARY MEDICATION 1 EACH (Pantoprazole Sodium 20 MG) PO SCH (09:00)
[2022-11-14 11:38] VITALS: BP 105/52
[2022-11-14 16:00] VITALS: BP 92/49
[2022-11-14 17:56] VITALS: BP 96/53
[2022-11-14 20:14] VITALS: BP 102/64
[2022-11-15 00:05] VITALS: BP 106/59
[2022-11-15] MEDS: DILTIAZEM 60MG TAB PO SCH ×2 (04:39→10:18)
[2022-11-15 04:45] VITALS: BP 118/66
[2022-11-15] MEDS: INSULIN HUMULIN R 100 UNIT/ML 3ML SQ SCH ×2 (05:47→11:19)
[2022-11-15] MEDS: DILTIAZEM 50MG VIAL IV SCH (07:02)
[2022-11-15 08:00] VITALS: BP 110/67
[2022-11-15] MEDS ORDERED: DILT-36 PO (08:13)
[2022-11-15] MEDS ORDERED: APIX2.5T PO (08:13)
[2022-11-15] MEDS: ASPIRIN 81MG CHEW TAB PO SCH (08:55)
[2022-11-15] MEDS: TAMSULOSIN HCL 0.4 MG CAP.ER.24H PO SCH (08:55)
[2022-11-15] MEDS: FUROSEMIDE 20 MG TABLET PO SCH (08:55)
[2022-11-15] MEDS: METOPROLOL SUCCINATE 50 MG TAB.SR.24H PO SCH (08:56)
[2022-11-15] MEDS: MEMANTINE HCL 5 MG TABLET PO SCH (08:56)
[2022-11-15] MEDS: LISINOPRIL 2.5 MG TABLET PO SCH (08:56)
[2022-11-15] MEDS: MULTIVITAMIN TABLET PO SCH (08:56)
[2022-11-15] MEDS: DONEPEZIL HCL 5 MG TAB PO SCH (08:57)
[2022-11-15] MEDS: FINASTERIDE 5 MG TABLET PO SCH (08:57)
[2022-11-15] MEDS: DIGOXIN 125 MCG TABLET PO SCH (08:57)
[2022-11-15] MEDS: PANTOPRAZOLE 40 MG TAB DR PO SCH (08:58)
[2022-11-15] MEDS: ENOXAPARIN SODIUM 100 MG/1 ML SQ SCH (08:59)
[2022-11-15] MEDS: ROSUVASTATIN 20MG PO SCH (09:00)
[2022-11-15 09:40] LABS: CREATININE 1.3 mg/dL (0.5-1.5); MAGNESIUM 1.8 mg/dL (1.80-2.40); POTASSIUM 3.9 mmol/L (3.5-5.1)
[2022-11-15 12:00] VITALS: BP 120/69
== END 2022-11-15 13:51 | disposition home or self-care (01) ==
LOC: EDH 07:27 → EDHIP 09:15 → 2AH 18:19
PROVIDERS: ADMIT Internal Medicine Pulmonary Disease; ATTEND Internal Medicine Pulmonary Disease
DX: I48.20 Chronic atrial fibrillation, unspecified (principal); Z20.822 Contact with and (suspected) exposure to COVID-19; I25.10 Atherosclerotic heart disease of native coronary artery without angina pectoris; I11.0 Hypertensive heart disease with heart failure; I50.9 Heart failure, unspecified; N40.0 Benign prostatic hyperplasia without lower urinary tract symptoms; E78.00 Pure hypercholesterolemia, unspecified; F03.90 Unspecified dementia, unspecified severity, without behavioral disturbance, psychotic disturbance, mood disturbance, and anxiety; E66.9 Obesity, unspecified; G47.33 Obstructive sleep apnea (adult) (pediatric); E11.9 Type 2 diabetes mellitus without complications; Z95.1 Presence of aortocoronary bypass graft; Z79.01 Long term (current) use of anticoagulants; Z79.899 Other long term (current) drug therapy
CPT/HCPCS: 96376; 96372 ×3; 96365; 96366; 80162; 84443; 82550 ×3; 83735 ×3; 83874 ×3; 84484 ×4; 80053; 83880 ×2; 85025 ×2; 87804 ×2; 82948 ×9; 81001; 36415 ×3; 87635; 71045; 93306; 99291; 93005 ×2; 84100; 80048 ×2; 97161; 97039 ×3; 84145; 97116; G0378 ×38; J1650 ×5; J3490 ×3

== ENCOUNTER → 2023-01-01 | Outpatient (CLI) | payer OTHER ==
[~2023-01-01] MED LIST changes: +APIX2.5T PO; +DILT-36 PO; -WARF4TAB72 PO
[2023-01-01 15:34] LABS: CREATININE 1.6 mg/dL (0.5-1.5); POTASSIUM 4.5 mmol/L (3.5-5.1)
== END | disposition home or self-care (01) ==
LOC: LAB 08:24
PROVIDERS: ATTEND Internal Medicine Cardiovascular Disease
DX: D68.59 Other primary thrombophilia (principal); I48.21 Permanent atrial fibrillation
CPT/HCPCS: 36415; 80048; 83735; 83880